=== PATIENT | male | born 1960 | race Caucasian/White ===

== ENCOUNTER 2018-09-29 17:28 | Emergency (ER) | payer OTHER, SELFPAY ==
[~2018-09-29 17:28] MED LIST: ISOVUE-370 76%-LOCM 1 ML ONE
[2018-09-29] MEDS ORDERED: Adacel (T-DAP) 0.5 ML SYRINGE ONE (17:34)
[2018-09-29] MEDS ORDERED: Fentanyl 100 MCG/2 ML VIAL ONE (17:38)
--- NOTE | 2018-09-29 17:58 | CT ---
Head CT without contrast 09/29/2018: COMPARISON: none HISTORY: Fall, trauma, pain TECHNIQUE: Axial CT imaging at 5 mm intervals from vertex through skull base without contrast FINDINGS: Imaged paranasal sinuses and mastoid air cells well-aerated. No displaced calvarial fractur e. No intracranial hemorrhage, midline shift, mass effect, or ventricular enlargement. IMPRESSION: No acute findings. Results called to Dr. Barbour at approximately 5:55 PM 09/29/2018
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
--- NOTE | 2018-09-29 18:10 | RAD ---
Left ankle 3 views: 09/29/2018 COMPARISON: None HISTORY: Injury, trauma, pain FINDINGS: The talar dome and ankle mortise appear intact. There is no displaced fracture or evidence of dislocation. There is enthesophyte formation at the origin of the plantar aponeurosis. IMPRESSION: No acute osseous abnormality.
--- NOTE | 2018-09-29 18:14 | RAD ---
Left foot 3 views: 09/29/2018 COMPARISON: None HISTORY: Injury, trauma, pain FINDINGS: There is mild widening of the interspace between the base of the first and second metatarsa ls, which may signify a LisFranc injury. There is a transverse fracture involving the base of the second and the third metatarsal. There is dorsal soft tissue swelling seen on the lateral examination . No dislocation is noted. There is a linear lucency on the oblique image involving the base of the fourth metatarsal which could represent a fracture or overlapping osseous structures. IMPRESSION: Possible Lisfranc ligament injury. Fracture deformities at the base of the second and thi rd metatarsals (and possibly the fourth metatarsal) as detailed above. A follow-up orthopedic consultation is suggested.
== END 2018-09-29 20:01 | disposition home or self-care (01) ==
LOC: ERS 17:28
DX: S92.322A Displaced fracture of second metatarsal bone, left foot, initial encounter for closed fracture (principal); S92.332A Displaced fracture of third metatarsal bone, left foot, initial encounter for closed fracture; S00.81XA Abrasion of other part of head, initial encounter; Z79.82 Long term (current) use of aspirin; X37.1XXA Tornado, initial encounter
CPT/HCPCS: 70450; 71260; 72125; 74177; 90471; 90715; 96361; 96374; G0390; J3010; Q9966